=== PATIENT | male | born 1970 | race Caucasian/White ===

== ENCOUNTER 2018-04-21 06:41 | Day surgery (SDC) | payer MEDICAID ==
[~2018-04-21] VITALS: Ht 172.7 cm; Wt 83.9 kg
--- NOTE | ~2018-04-21 | OP ---
PATIENT NAME: LISA CASTILLO MEDICAL RECORD: [id number] :68 [facility] DATE: SURGEON: KULWINDER SORENSEN MD DATE OF OPERATION: 04/21/2018 PREOPERATIVE DIAGNOSES: Sleep apnea, tonsillar hypertrophy, nasal obstruction, turbinate hypertrophy, and recurrent uvula edema. POSTOPERATIVE DIAGNOSES: Sleep apnea, tonsillar hypertrophy, nasal obstruction, turbinate hypertrophy, and recurrent uvula edema. PROCEDURES: 1. Uvulopharyngopalatoplasty with tonsillectomy. 2. Bilateral inferior turbinate reduction. SURGEON: Kulwinder Sorensen MD ANESTHESIA: General orotracheal. BLOOD LOSS: Less than 10 cc. SPECIMENS: Right and left tonsil, uvula. NASAL PACKING: None. COMPLICATIONS: None. DISPOSITION: Recovery, stable. DESCRIPTION OF PROCEDURE: He was brought to the operating room, placed in supine position, sedated and intubated by anesthesia. Eyes were taped. Table was turned 90 degrees. Head drape was applied. He was positioned for tonsillectomy. He had already been decongested with Afrin. Using a headlight, a Mariah-Constantine mouth gag was carefully inserted and elevated on a towel on his chest. The palate was examined and palpated, it was normal. A red rubber catheter was placed to the right side of the nose and the pharynx was grasped with a tonsil clamp to retract soft palate. Using a mirror, the nasopharynx was examined. There was no significant adenoid tissue. Choanae and eustachian tube orifices were normal bilaterally. The red rubber catheter was let down and removed. The right tonsil was grasped at the superior pole with a straight Allis clamp. Spatula cautery on a setting of 9 was used to dissect out the tonsil along its capsule, preserving the anterior and posterior tonsillar pillar. The left tonsil was removed in the same fashion. Then, the uvula was grasped. An incision was made with a spatula tip cautery on a setting of 10 across the base of the uvula and it was lifted superiorly. I preserved all the nasopharyngeal mucosa of the palate and dissected off the uvula. Then, both sides of the nose were irrigated with saline. The pharynx was suctioned. Tonsillar fossae were agitated with Yankauer suction. All bleeding was controlled with suction cautery on a setting of 20. Then, the tonsillar fossae and the uvula were closed using interrupted horizontal mattress and simple sutures with 3-0 Vicryl. Once that was completely closed, the ear was again irrigated and examined, it was completely clean and dry. The Mariah-Constantine mouth gag was let down and removed. Then, the nose was examined using headlight and nasal speculum. Both inferior turbinates were medialized with a freer. Inferior redundant portion was taken down with a Gruenwald. Suction cautery on OPERATIVE REPORT [id number] LISA CASTILLO a setting of 30 was used to stop any bleeding and both outfractured with a Searcy elevator. The nose was otherwise normal. Septum was straight. There were no masses or polyps. I could see all the way back to the nasopharynx. He had good airway bilaterally. Then, he was awakened, extubated, and transported to recovery in good condition. No complications. TRANSINT:[id number] Voice Confirmation ID: [id number] DOCUMENT ID: [id number] KULWINDER SORENSEN MD at 1821 CC: [id number] DICTATION DATE: 04/21/18 1227 STEEL PLATE PRINTER: 04/21/18 1243 [facility] 04/21/18 [id number] [place] [address]
--- NOTE | ~2018-04-21 | HP ---
PATIENT: DUANE CASTILLO MEDICAL RECORD: [id number] ACCOUNT: [id number] LOCATION:[facility] : 68 ADMISSION DATE: 04/21/18 PCP: DAVID HUBBARD HISTORY AND PHYSICAL EXAMINATION PREOPERATIVE HISTORY AND PHYSICAL HISTORY: Duane is 47 years old. He has been having significant problems with chronic tonsil issues, obstruction, and sleep apnea as well as nasal obstruction. He is being admitted for tonsillectomy and turbinate reduction, UP3. PAST MEDICAL HISTORY: Includes diabetes, hypertension, reflux, heart disease. He has sleep apnea. PAST SURGICAL HISTORY: Includes wrist surgery, cardiac stent in 2013, back surgery in 2015. MEDICATIONS: Ambien, Plavix has been held, metformin, finasteride, Klor-Con, Lasix, Celexa, bupropion, atorvastatin, metoprolol, testosterone, Nitrostat. PHYSICAL EXAMINATION: GENERAL: He is healthy-appearing, developmentally normal. FACE: Normal, symmetric, no lesions. EYES: Sclerae and conjunctivae are normal. EARS: Canals and TMs are normal. NOSE: Relatively straight septum, large turbinates. Not really decongest well. ORAL CAVITY AND OROPHARYNX: A very low palate and uvula, cryptic tonsils. NECK: No masses, no adenopathy. CHEST: Clear. CARDIOVASCULAR: Regular rate and rhythm, no murmur. EXTREMITIES: Normal. IMPRESSION: Sleep apnea, nasal obstruction. He is on CPAP with pressure setting of 16, difficulty tolerating that. PLAN: Bilateral inferior turbinate reduction, tonsillectomy, and uvulopharyngopalatoplasty. TRANSINT:[id number] Voice Confirmation ID: [id number] DOCUMENT ID: [id number] KULWINDER MARISCAL MD at 1821 CC: [id number] DICTATION DATE: 04/17/18 1442 HOME DEMONSTRATION AGENT: 04/17/18 1618 [facility] 04/21/18 [id number] [place] [address]
[2018-04-21 07:01] LABS: HEMOGLOBIN 13.9 g/dL (13.5-17.5); MCH 33.5 pg (26.0-34.0); MCHC 34.8 g/dL (31.0-37.0); MCV 96.4 fL (80.0-100.0); MEAN PLATELET VOLUME 8.8 fL (7.4-10.4); RBC 4.15 10x6/uL (4.20-6.10); RDW 13.7 % (11.5-14.5); WBC 7.7 10x3/uL (4.8-10.8)
[2018-04-21 07:07] LABS: CALC OSMOLALITY 282 mosm/kg (275-300); CHLORIDE - SERUM 104 mmol/L (98-107); GLUCOSE 110 mg/dL (74-106); SODIUM 141 mmol/L (136-145); UREA NITROGEN 15 mg/dL (7-18); eGFR NON AFRICAN AMERICAN 85 mL/min (90-120)
[2018-04-21 08:25] VITALS: BP 144/87; Ht 172.7 cm; Wt 83.9 kg
[2018-04-21] MEDS ORDERED: AMBIEN10 MG (08:43)
[2018-04-21] MEDS ORDERED: PLAVIX75 MG (08:44)
[2018-04-21] MEDS ORDERED: BUPROPION HCL100 MG (08:45)
[2018-04-21] MEDS ORDERED: LIPITOR80 MG (08:45)
[2018-04-21] MEDS ORDERED: METFORMIN HCL500 M1 PO (08:46)
[2018-04-21] MEDS ORDERED: NORCO 7.5/325 T1 TA1 (08:47)
[2018-04-21] MEDS ORDERED: CELEXA40 MG PO (08:48)
[2018-04-21] MEDS ORDERED: TENORMIN50 MG PO (08:49)
[2018-04-21] MEDS ORDERED: PROTONIX40 MG PO (08:49)
[2018-04-21] MEDS ORDERED: TOZAL SOFTGEL1 EACH PO (08:50)
== END 2018-04-21 12:14 | disposition home or self-care (01) ==
LOC: D.OPS 06:41 → D.PAN 08:45 → D.OPS 08:45
PROVIDERS: Anesthesiology
DX: J35.2 Hypertrophy of adenoids (principal); J35.1 Hypertrophy of tonsils; G47.33 Obstructive sleep apnea (adult) (pediatric)

== ENCOUNTER 2018-04-23 09:05 | Emergency (ER) | payer MEDICAID ==
[~2018-04-23] VITALS: Ht 172.7 cm; Wt 84.1 kg
[~2018-04-23 09:05] MED LIST: AMBIEN10 MG; BUPROPION HCL100 MG; CELEXA40 MG PO; LIPITOR80 MG; METFORMIN HCL500 M1 PO; NORCO 7.5/325 T1 TA1; PLAVIX75 MG; PROTONIX40 MG PO; TENORMIN50 MG PO; TOZAL SOFTGEL1 EACH PO
[2018-04-23 09:11] VITALS: Ht 172.7 cm; Wt 84.1 kg
[2018-04-23 09:51] LABS: BASOPHILS 0.1 % (0-2); EOSINOPHILS 0.2 % (0-7); HEMATOCRIT 42.3 % (42.0-54.0); HEMOGLOBIN 15.1 g/dL (13.5-17.5); IMMATURE GRANULOCYTES 0.5 % (0-5); LYMPHOCYTES 13.4 % (15-50); MCH 33.9 pg (26.0-34.0); MCHC 35.7 g/dL (31.0-37.0); MCV 95.1 fL (80.0-100.0); MEAN PLATELET VOLUME 9.5 fL (7.4-10.4); MONOCYTES 11.4 % (2-11); NEUTROPHILS 74.4 % (40-80); RBC 4.45 10x6/uL (4.20-6.10); RDW 13.6 % (11.5-14.5); WBC 17.3 10x3/uL (4.8-10.8)
[2018-04-23 09:53] LABS: PLATELET COUNT 293 10x3/uL (130-400)
[2018-04-23 10:01] LABS: ALBUMIN 4.3 g/dL (3.4-5.0); ALKALINE PHOSPHATASE 67 U/L (46-116); ALT (SGPT) 36 U/L (10-68); BILIRUBIN - TOTAL 0.62 mg/dL (0.2-1.3); CALC OSMOLALITY 275 mosm/kg (275-300); CALCIUM 9.4 mg/dL (8.5-10.1); CARBON DIOXIDE 25.5 mmol/L (21.0-32.0); CHLORIDE - SERUM 99 mmol/L (98-107); CREATININE - SERUM 0.9 mg/dL (0.6-1.3); GLUCOSE 122 mg/dL (74-106); POTASSIUM - SERUM 3.7 mmol/L (3.5-5.1); SODIUM 138 mmol/L (136-145); UREA NITROGEN 9 mg/dL (7-18); eGFR NON AFRICAN AMERICAN > 90 mL/min (90-120)
[2018-04-23 10:18] LABS: APPEARANCE CLEAR (CLEAR); BACTERIA FEW /hpf (NONE SEEN); BILIRUBIN NEGATIVE (NEGATIVE); COLOR YELLOW (YELLOW); EPITHELIAL CELLS OCC /hpf (0-5); GLUCOSE NEGATIVE (NEGATIVE); KETONE NEGATIVE (NEGATIVE); NITRITE NEGATIVE (NEGATIVE); PROTEIN 1+ mg/dL (NEGATIVE); SPECIFIC GRAVITY 1.015 (1.005-1.020)
[2018-04-23 11:20] VITALS: BP 125/78
== END 2018-04-23 11:15 | disposition home or self-care (01) ==
LOC: D.ER 09:05
PROVIDERS: Family Medicine
DX: G89.18 Other acute postprocedural pain (principal); E11.9 Type 2 diabetes mellitus without complications; F17.200 Nicotine dependence, unspecified, uncomplicated

== ENCOUNTER 2018-04-27 05:48 | Emergency (ER) | payer MEDICAID ==
[~2018-04-27] VITALS: Ht 172.7 cm; Wt 63.6 kg
[2018-04-27 05:52] VITALS: Ht 172.7 cm; Wt 63.6 kg
[2018-04-27] MEDS ORDERED: HYDROCODON-ACET15 ML PO (05:56)
[2018-04-27] MEDS ORDERED: NORCO 7.5/325 T1 TA1 PO (06:25)
[2018-04-27 06:40] VITALS: BP 122/75
== END 2018-04-27 06:41 | disposition home or self-care (01) ==
LOC: D.ER 05:48
DX: K91.841 Postprocedural hemorrhage of a digestive system organ or structure following other procedure (principal); R04.2 Hemoptysis; E11.9 Type 2 diabetes mellitus without complications; F17.200 Nicotine dependence, unspecified, uncomplicated

== ENCOUNTER 2018-04-28 00:43 | Inpatient (IN) | payer MEDICAID ==
[~2018-04-28] VITALS: Ht 172.7 cm; Wt 83.0 kg
[2018-04-28] VITALS (11 sets, daily range): BP systolic 66–163; BP diastolic 35–97; Ht 172.7 cm; Wt 83.0 kg
--- NOTE | ~2018-04-28 | DS ---
PATIENT:LISA CASTILLO :68 MEDICAL RECORD: [id number] DISCHARGE SUMMARY ADMISSION DATE: 04/28/18 DISCHARGE DATE: 04/28/18 ADMISSION DIAGNOSIS: Post-tonsillectomy hemorrhage ADMITTING PHYSICIAN: Dr. Malik Sorensen. DATE OF ADMISSION: 04/28/2018. DATE OF DISCHARGE: 04/28/2018. HOSPITAL COURSE: The patient, about 1 week status post tonsillectomy, restarted Plavix too soon postoperatively, came in with hemorrhaging. He came in through the Emergency Room. Initially he felt like he had lost a lot of blood and transfusion of 2 units packed cells; however, his hemoglobin was 11 prior to the transfusion, it was 12 afterwards. He was taken to the OR emergently shortly after he presented where diffuse oozing was controlled. He is admitted to the ICU because of his diabetes and the fact that he required transfusion and sleep apnea. Overnight, he did well. No nausea, vomiting, able to take liquids. Pain was well controlled. His morning labs were good with stable hemoglobin. BUN is decreased. He felt good. He was discharged home in stable condition with some Lortab elixir for pain. Resume all his previous home medications except for the Plavix, which has been hold for another week. He will follow up in the ENT clinic in a week. TRANSINT:[id number] Voice Confirmation ID: [id number] DOCUMENT ID: [id number] MALIK SORENSEN MD at 1229 CC: [id number] DICTATION DATE: 04/28/18 1344 CENTRAL AISLE CASHIER: 04/29/18 0025 [facility] IN 04/28/18 [place] [address]
--- NOTE | ~2018-04-28 | OP ---
PATIENT NAME: LISA CASTILLO MEDICAL RECORD: [id number] :68 LOCATION:[facility] D.2310 ADMISSION DATE:04/28/18 SURGEON: KULWINDER SORENSEN MD DATE OF OPERATION: 04/28/2018 PREOPERATIVE DIAGNOSIS: Post-tonsillectomy hemorrhage. POSTOPERATIVE DIAGNOSIS: Post-tonsillectomy hemorrhage. PROCEDURE: Control of post-tonsillectomy hemorrhage. SURGEON: Kulwinder Sorensen MD ANESTHESIA: General orotracheal. BLOOD LOSS: Less than 5 cc during the procedure. COMPLICATIONS: None. DISPOSITION: To recovery, stable. FINDINGS: Oozing from both tonsillar fossae, nothing very severe, but not much granulation, just some diffuse oozing evacuated. A 1000 cc of dark fluid from the stomach with an NG tube during the procedure. DESCRIPTION OF PROCEDURE: He was brought to the operating room and placed in the supine position, sedated and intubated by anesthesia. The eyes were taped. The table was turned 90 degrees. Head drape was applied and he was positioned for tonsillectomy. Using a headlight, a Mariah-Constantine mouth gag was carefully inserted and elevated on a towel on his chest. The pharynx was examined. There was some blood clot in both tonsillar fossae, a Yankauer suction was used to evacuate the clot from both sides and the suction cautery on a setting of 20 was used to control a few spots on both the sides. Once that was done, an NG tube was placed into the stomach through the mouth three to four times to evacuate the stomach contents, basically about 1000 cc of dark fluid, nothing bright red, nothing clotting, it was easy to evacuate the stomach contents. Once that was completed, reexamined the pharynx and tonsillar fossae again. Some silver nitrate was used diffusely to help stop it and then some Carafate slurry was used to coat the tonsillar fossae. The mouth gag was let down and re-elevated. The fossae were agitated with Yankauer suction repeatedly over about 10 minutes just to make sure there was not going to be any more bleeding with the field completely clean and dry, the Mariah-Constantine mouth gag was let down and removed. He was awakened, extubated, and transported to the recovery in good condition. No complications. TRANSINT:[id number] Voice Confirmation ID: [id number] DOCUMENT ID: [id number] OPERATIVE REPORT [id number] LISA CASTILLO ERIC MD at 1250 CC: [id number] DICTATION DATE: 04/28/18305 SUPERVISOR PLATING AND POINT ASSEMBLY: 04/28/18 0447 ADM IN [facility] [address] [place] [address]
--- NOTE | ~2018-04-28 | HP ---
PATIENT: LISA CASTILLO MEDICAL RECORD: [id number] ACCOUNT: [id number] LOCATION:[facility]2310 : 68 ADMISSION DATE: 04/28/18 PCP: No PCP HISTORY AND PHYSICAL EXAMINATION HISTORY OF PRESENT ILLNESS: Mr. Castillo is about a week status post tonsillectomy. He had had some problems with nausea and vomiting earlier in the week. He called me on 04/27/2018 before 7:00 p.m. and his talked to me and said he had been bleeding for a few hours and it would not stop. Advised them to come into the Emergency Room. After waiting for a while and not getting a call, I called the Emergency Room and they said he had called in and told them not to wait for him, he was not going to come in. He eventually did come in about 1:00 in the morning, still was bleeding and hypotensive and I asked him why he did not come in earlier he said he was trying to avoid, he did not want another surgery. He is having mild but diffuse bleeding from both tonsillar fossae. We talked to him talked about that, he was getting some blood because he was hypotensive in the ER, labs are pending and we had to take him to the OR for control of the bleeding. PHYSICAL EXAMINATION: GENERAL: He was awake, alert, conversant. THROAT: Had some blood in his pharynx and both tonsillar fossae. NECK: No masses, no adenopathy, no swelling. CHEST: Clear. IMPRESSION: Post-tonsillectomy hemorrhage. He says that he had been advised by someone, I am not sure who, to restart his Plavix 3 or 4 days ago and started bleeding sometime I believe in the morning of 4th intermittently. PLAN: OR for control of post-tonsillectomy hemorrhage. TRANSINT:[id number] Voice Confirmation ID: [id number] DOCUMENT ID: [id number] KULWINDER MARISCAL MD at 1250 CC: [id number] DICTATION DATE: 04/28/18 030 SERVICE TECH/WELDER: 04/28/18 0347 ADM IN [facility] [address] [place] [address]
[~2018-04-28 00:43] MED LIST changes: +HYDROCODON-ACET15 ML PO; +NORCO 7.5/325 T1 TA1 PO
[2018-04-28 01:21] LABS: BASOPHILS 0.1 % (0-2); HEMOGLOBIN 10.9 g/dL (13.5-17.5); IMMATURE GRANULOCYTES 0.6 % (0-5); LYMPHOCYTES 23.4 % (15-50); MCH 32.5 pg (26.0-34.0); MCHC 34.1 g/dL (31.0-37.0); MCV 95.5 fL (80.0-100.0); NEUTROPHILS 67.9 % (40-80); RBC 3.35 10x6/uL (4.20-6.10); RDW 13.4 % (11.5-14.5); WBC 12.5 10x3/uL (4.8-10.8)
[2018-04-28 01:22] LABS: PLATELET COUNT 355 10x3/uL (130-400)
[2018-04-28 01:31] LABS: APTT 24.4 SECONDS (22.8-39.4); INR 1.09 (0.85-1.17); PROTIME 13.7 SECONDS (11.6-15.0)
[2018-04-28 01:33] LABS: ALBUMIN 3.3 g/dL (3.4-5.0); ALKALINE PHOSPHATASE 44 U/L (46-116); ALT (SGPT) 25 U/L (10-68); BILIRUBIN - TOTAL 0.43 mg/dL (0.2-1.3); CALC OSMOLALITY 288 mosm/kg (275-300); CALCIUM 8.5 mg/dL (8.5-10.1); CARBON DIOXIDE 29.7 mmol/L (21.0-32.0); CHLORIDE - SERUM 100 mmol/L (98-107); CREATININE - SERUM 0.8 mg/dL (0.6-1.3); GLUCOSE 159 mg/dL (74-106); POTASSIUM - SERUM 3.3 mmol/L (3.5-5.1); PROTEIN - SERUM 6.2 g/dL (6.4-8.2); SODIUM 140 mmol/L (136-145); UREA NITROGEN 31 mg/dL (7-18); eGFR NON AFRICAN AMERICAN > 90 mL/min (90-120)
[2018-04-28 10:36] LABS: BASOPHILS 0.1 % (0-2); EOSINOPHILS 0.4 % (0-7); HEMATOCRIT 35.1 % (42.0-54.0); IMMATURE GRANULOCYTES 0.2 % (0-5); LYMPHOCYTES 26.8 % (15-50); MCH 32.1 pg (26.0-34.0); MCHC 34.2 g/dL (31.0-37.0); MCV 93.9 fL (80.0-100.0); MEAN PLATELET VOLUME 8.6 fL (7.4-10.4); MONOCYTES 12.6 % (2-11); NEUTROPHILS 59.9 % (40-80); RBC 3.74 10x6/uL (4.20-6.10); WBC 9.6 10x3/uL (4.8-10.8)
[2018-04-28 10:38] LABS: PLATELET COUNT 251 10x3/uL (130-400)
[2018-04-28 10:54] LABS: CALCIUM 8.1 mg/dL (8.5-10.1); CARBON DIOXIDE 31.1 mmol/L (21.0-32.0); CHLORIDE - SERUM 105 mmol/L (98-107); CREATININE - SERUM 0.8 mg/dL (0.6-1.3); POTASSIUM - SERUM 3.7 mmol/L (3.5-5.1); SODIUM 142 mmol/L (136-145); eGFR NON AFRICAN AMERICAN > 90 mL/min (90-120)
[2018-04-28 10:55] LABS: CALC OSMOLALITY 285 mosm/kg (275-300); GLUCOSE 89 mg/dL (74-106); UREA NITROGEN 23 mg/dL (7-18)
== END 2018-04-28 13:59 | disposition home or self-care (01) | DRG 909 ==
LOC: D.ER 00:43 → D.ICU 01:14 → D.ER 02:09 → D.ICU 13:59
PROVIDERS: Family Medicine; Otolaryngology
PROC: 0W33XZZ Control Bleeding in Oral Cavity and Throat, External Approach (ICD-10-PCS; principal; 2018-04-28 01:51)
DX: K91.840 Postprocedural hemorrhage of a digestive system organ or structure following a digestive system procedure (principal); E11.9 Type 2 diabetes mellitus without complications; G47.30 Sleep apnea, unspecified; I95.9 Hypotension, unspecified